=== PATIENT | female | born 1960 ===

== ENCOUNTER 2019-10-10 07:47 | Day surgery (SDC) | payer OTHER ==
[~2019-10-10] VITALS: Ht 157.5 cm; Wt 54.1 kg
[~2019-10-10 07:47] MED LIST: Augmentin 875-1 EACH PO
--- NOTE | 2019-10-10 09:36 | NUR ---
10/10/19 0936 Arturo Talbot INJECTED 2 MLS OF INK TO TATTOO SIGMOID COLON POLYP PER DR GALINDO.
== END 2019-10-10 10:06 | disposition home or self-care (01) ==
LOC: ORSCSDS 07:47
PROVIDERS: Surgery
PROC: 0DBK8ZX Excision of Ascending Colon, Via Natural or Artificial Opening Endoscopic, Diagnostic (ICD-10-PCS; principal; 2019-10-10 09:00)
PROC: 3E0H8GC Introduction of Other Therapeutic Substance into Lower GI, Via Natural or Artificial Opening Endoscopic (ICD-10-PCS; principal; 2019-10-10 09:00)
PROC: 0DBM8ZX Excision of Descending Colon, Via Natural or Artificial Opening Endoscopic, Diagnostic (ICD-10-PCS; principal; 2019-10-10 09:00)
PROC: 0DBN8ZX Excision of Sigmoid Colon, Via Natural or Artificial Opening Endoscopic, Diagnostic (ICD-10-PCS; principal; 2019-10-10 09:00)
DX: Z12.11 Encounter for screening for malignant neoplasm of colon (principal); Z86.010 Personal history of colon polyps; D12.2 Benign neoplasm of ascending colon; K63.5 Polyp of colon; Z87.891 Personal history of nicotine dependence; E03.9 Hypothyroidism, unspecified; F17.210 Nicotine dependence, cigarettes, uncomplicated
CPT/HCPCS: 88305; J2704; J7120

== ENCOUNTER → 2023-09-25 | Outpatient (CLI) | payer OTHER | LOC: LAB SHORT 15:11 → LAB 15:11 | DX: N39.0 Urinary tract infection, site not specified (principal) | CPT/HCPCS: 87077; 87086; 87186 ==

== ENCOUNTER 2025-01-07 07:25 | Day surgery (SDC) | payer BC, MEDICARE, OTHER ==
[~2025-01-07] VITALS: Ht 157.5 cm; Wt 51.8 kg
[~2025-01-07 07:25] MED LIST changes: +Lactated Ringer's 1,000 ML IV ONE; +propofoL 50 ML IV ONE
[2025-01-07] MEDS ORDERED: Lactated Ringer's 1,000 ML IV ONE (08:24)
[2025-01-07 09:51] VITALS: BP 136/72
== END 2025-01-07 09:56 | disposition home or self-care (01) ==
LOC: ORSCSDS 07:25
PROVIDERS: Surgery
PROC: 0DBK8ZX Excision of Ascending Colon, Via Natural or Artificial Opening Endoscopic, Diagnostic (ICD-10-PCS; principal; 2025-01-07 08:45)
DX: Z12.11 Encounter for screening for malignant neoplasm of colon (principal); Z86.0100 Personal history of colon polyps, unspecified; D12.2 Benign neoplasm of ascending colon; K57.30 Diverticulosis of large intestine without perforation or abscess without bleeding
CPT/HCPCS: 88305; J2704; J7120

== ENCOUNTER → 2025-07-08 | Outpatient (CLI) | payer BC ==
[~2025-07-08] MED LIST changes: -Lactated Ringer's 1,000 ML IV ONE; -propofoL 50 ML IV ONE
== END ==
LOC: LAB SHORT 15:33 → LAB 15:33
PROVIDERS: Student in an Organized Health Care Education/Training Program
DX: Z12.4 Encounter for screening for malignant neoplasm of cervix (principal)
CPT/HCPCS: 87624; G0145